=== PATIENT | male | born 1945 | race Caucasian/White ===

== ENCOUNTER 2017-09-12 12:46 | Emergency (ER) | payer MEDICARE ==
[2017-09-12] MEDS ORDERED: Cyclobenzaprine 10 MG TAB ONE (14:06)
[2017-09-12] MEDS ORDERED: Ketorolac Tromethamine 30 MG/ML VIAL ONE (14:06)
--- NOTE | 2017-09-12 14:48 | CT ---
CT SCAN LUMBAR SPINE: Date: 09/12/17 Multiple axial tomograms obtained through the lumbar spine with multiplanar reconstruction. HISTORY: Back pain. FINDINGS: Scoliosis of the upper lumbar spine with convexity to the right measured at 24 degrees. Moderate to s evere degenerative changes of the lumbar spine with anterior and lateral osteophytes at all levels. T here are bridging osteophytes present. The vertebral bodies maintain height in the sagittal plane. Po sterior alignment is also preserved. At L1-2, diffuse disc bulge is pronounced paracentrally and on the left. This flattens the thecal sac and is associated with facet and ligamentous hypertrophy resulting in moderate central canal stenosi s. At L2-3, diffuse disc bulge combined with facet and ligamentous hypertrophy results in moderate to se juanpbalo central canal stenosis. Left foraminal narrowing. At L3-4, there is diffuse disc bulge. Prominent facet and ligamentous hypertrophy. Moderate central c anal stenosis. Large disc osteophyte complex projects to the right. Bilateral foraminal stenosis. At L4-5, broad based disc bulge. Facet hypertrophy. Severe central canal stenosis. Disc osteophyte co mplex projects to the right and encroaches into the foramina. Bilateral foraminal stenosis, more gordon re on the right. At l5-S1, diffuse disc bulge and posterior spurring compresses the thecal sac. Facet and ligamentous hypertrophy. Moderate to severe central canal stenosis. Bilateral foraminal stenosis due to disc bulg e and hypertrophic change. Tiny gas pockets from desiccated disc extends into the left foramina. Review of soft tissues reveals a fluid-filled dilated structure in the upper abdomen which is incompl etely evaluated, presumably representing a distended stomach, although not confirmed. There are bilat eral renal cystic lesions and there is small left pleural effusion incidentally noted. IMPRESSION: Severe degenerative changes of the lumbar spine with scoliotic curvature. Central canal stenosis at m ultiple levels as described. POS: KELLIE
== END 2017-09-12 15:35 | disposition home or self-care (01) ==
LOC: ERS 12:46
DX: M54.5 Low back pain (principal); E78.00 Pure hypercholesterolemia, unspecified; I25.2 Old myocardial infarction; Z79.899 Other long term (current) drug therapy
CPT/HCPCS: 72131; 96372; J1885

== ENCOUNTER 2018-09-21 16:06 | Emergency (ER) | payer MEDICARE ==
--- NOTE | 2018-09-21 16:38 | RAD ---
EXAM: Single view of the chest HISTORY: Dizziness and tingling COMPARISON: 06/07/2013 FINDINGS: Single view of the chest shows an enlarged but stable cardiomediastinal silhouette. The pa tient is status post sternotomy. Pleural thickening is seen in the left thorax. There may be a small left pleural effusion. There is no evidence of consolidation or mass. The bones are unremarkabl e. IMPRESSION: Left pleural thickening and small left pleural effusion
[2018-09-21 16:48] LABS: #Basophils 0.1 thou/uL (0.0-0.2); #Eosinphils 0.1 thou/uL (0.0-0.7); #Lymphocytes 1.7 thou/uL (1.20-3.40); #Monocytes 0.7 thou/uL (0.11-0.59); #Neutrophils 4.5 thou/uL (1.40-6.50); %Basophils 0.8 % (0.0-1.0); %Eosinophils 1.4 % (0.0-10.0); %Monocytes 9.5 % (0.0-10.0); %Neutrophils 64.3 % (42.0-75.0); Hemoglobin 13.9 g/dL (14.0-18.0); Mean Corpuscular HGB CONC 32.2 g/dL (32.0-36.0); Mean Corpuscular Hemoglobin 28.9 pg (27.0-31.0); Mean Corpuscular Volume 89.8 fL (78.0-98.0); Mean Platelet Volume 8.2 fL (7.4-10.4); Platelet Count 205 thou/uL (130-400); RBC Distribution Width 12.9 % (11.5-14.5)
[2018-09-21 17:14] LABS: ALT (SGPT) 14 U/L (8-55); AST (SGOT) 19 U/L (5-34); Albumin 3.9 g/dL (3.4-4.8); Alkaline Phosphatase 80 U/L (40-150); Anion Gap 10 mmol/L (10-20); BUN (Urea Nitrogen) 24 mg/dL (8.4-25.7); Bilirubin, Total 0.4 mg/dL (0.2-1.2); CK (CPK) 124 U/L (30-200); Calc. Creatinine Clearance 0 mL/min (70-130); Calcium 9.5 mg/dL (7.8-10.44); Carbon Dioxide 27 mmol/L (23-31); Chloride 105 mmol/L (98-107); Estimated GFR-MDRD 67; Globulin 3.5 g/dL (2.4-3.5); Glucose 103 mg/dL (83-110); Lipase 31 U/L (8-78); Potassium 4.4 mmol/L (3.5-5.1); Protein, Total 7.4 g/dL (5.8-8.1); Sodium 138 mmol/L (136-145)
--- NOTE | 2018-09-21 17:17 | CT ---
Head CT without contrast 09/21/2018: HISTORY: Right upper extremity weakness TECHNIQUE: Axial CT imaging at 5 mm intervals from vertex through skull base without contrast FINDINGS: Imaged paranasal sinuses and mastoid air cells appear grossly unremarkable. There is athero sclerotic calcification of the cavernous carotid arteries and distal vertebral arteries. There is mild cerebral volume loss. Mild hypodensity noted in bilateral cerebellar hemispheres posteriorly, wi thin the hoang, and involving the periventricular white matter, likely on the basis of small vessel disease. IMPRESSION: No acute findings. If there is clinical concern for acute infarction, follow-up brain MRI is advised.
--- NOTE | 2018-09-21 18:34 | MRI ---
MRI of the lumbar spine: 09/21/2018 COMPARISON: None HISTORY: Right leg weakness and numbness for 3-4 days TECHNIQUE: Multiplanar multisequence MR imaging of the lumbar spine obtained without contrast FINDINGS: There is severe scoliotic curvature of the lumbar spine, limiting detailed assessment. There is complex abnormal T2 hyperintensity in the region of the partially imaged left lung base whic h may signify complex left pleural effusion and/or nonspecific left basilar pulmonary parenchymal opacity. The sagittal STIR imaging demonstrates no focal area of osseous marrow edema. No significant anterolisthesis or retrolisthesis is noted within the lumbar spine. Assuming 5 lumbar type vertebral bodies, the conus medullaris terminates at the T12-L1 level. T12-L1: Disc space narrowing and disc desiccation. Bilateral facet hypertrophy, left greater than rig ht. Moderate left neural foraminal stenosis. No significant central canal or right neural foraminal stenosis. L1-2: Disc space narrowing, disc desiccation, and disc bulge present. Bilateral facet hypertrophy, le ft greater than right. There is left lateral recess stenosis and moderate/severe left neural foraminal stenosis. No right neural foraminal stenosis. L2-3: There is disc space narrowing and disc desiccation. Prominent bilateral facet hypertrophy and h ypertrophy of the ligamentum flavum. Moderate central canal stenosis and moderate bilateral neural foraminal stenosis. L3-4: Disc space narrowing and disc desiccation with mild disc bulge. Prominent bilateral facet hyper trophy. Severe right neural foraminal stenosis. Mild/moderate central canal stenosis. No left neural foraminal stenosis. L4-5: Disc space narrowing and disc desiccation with mild disc bulge and moderate central canal steno sis. Prominent bilateral facet hypertrophy. Significant bilateral lateral recess stenosis, right greater than left. Severe right neural foraminal stenosis and mild/moderate left neural foraminal constantine nosis. L5-S1: Disc space narrowing, disc desiccation, and disc bulge with small superimposed central disc pr otrusion causing moderate central canal stenosis. Bilateral facet hypertrophy with moderate bilateral neural foraminal stenosis. Review of the retroperitoneal structures demonstrates multiple T2 hyperintense lesions emanating from bilateral kidney suggesting multiple cysts. In addition, there is a T2 isointense lesion emanating from the upper pole of the right kidney measuring 2.1 cm. This does not meet criteria for a simple cy st and should be further assessed via nonemergent CT examination of the abdomen. IMPRESSION: 1. Severe multilevel degenerative change with associated multifocal central canal and neural foramina l stenosis. 2. Nonspecific lesion emanating from upper pole of right kidney, which does not meet criteria for a c yst. Recommend nonemergent follow-up CT of the abdomen without and with contrast using a renal mass protocol. CODE T
== END 2018-09-21 19:30 | disposition home or self-care (01) ==
LOC: ERS 16:06
DX: M48.061 Spinal stenosis, lumbar region without neurogenic claudication (principal); R53.1 Weakness; I25.2 Old myocardial infarction; E78.5 Hyperlipidemia, unspecified; I10 Essential (primary) hypertension; Z87.891 Personal history of nicotine dependence; Z79.899 Other long term (current) drug therapy
CPT/HCPCS: 70450; 71045; 72148; 80053; 82550; 83690; 84484; 85025; 93005

== ENCOUNTER 2021-02-12 10:50 | Outpatient (CLI) | payer MEDICARE ==
[2021-02-12] MEDS ORDERED: Iopamidol 370 76% 100 ML VIAL ONE (11:11)
== END 2021-02-12 10:51 | disposition home or self-care (01) ==
LOC: CT 10:50
PROVIDERS: ATTEND Internal Medicine Cardiovascular Disease
DX: I77.810 Thoracic aortic ectasia (principal); J90 Pleural effusion, not elsewhere classified
CPT/HCPCS: 71275; 82565

== ENCOUNTER 2021-02-13 14:19 | Inpatient (IN) | payer MEDICARE ==
[2021-02-13 16:21] LABS: #Basophils 0.1 thou/uL (0.0-0.2); #Eosinphils 0.1 thou/uL (0.0-0.7); #Lymphocytes 1.6 thou/uL (1.20-3.40); #Monocytes 0.8 thou/uL (0.11-0.59); #Neutrophils 5.8 thou/uL (1.40-6.50); %Basophils 0.7 % (0.0-1.0); %Eosinophils 1.1 % (0.0-10.0); %Lymphocytes 19.4 % (21.0-51.0); %Monocytes 9.1 % (0.0-10.0); %Neutrophils 69.7 % (42.0-75.0); Hemoglobin 14.8 g/dL (14.0-18.0); Mean Corpuscular Hemoglobin 30.9 pg (27.0-31.0); Mean Corpuscular Volume 90.7 fL (78.0-98.0); Mean Platelet Volume 8.1 fL (7.4-10.4); Platelet Count 187 thou/uL (130-400); RBC Distribution Width 12.5 % (11.5-14.5); White Blood Cell (WBC) Count 8.3 thou/uL (4.8-10.8)
[2021-02-13 16:41] LABS: ALT (SGPT) 12 U/L (8-55); AST (SGOT) 18 U/L (5-34); Albumin 4.1 g/dL (3.4-4.8); Alkaline Phosphatase 75 U/L (40-110); Anion Gap 11 mmol/L (10-20); BUN (Urea Nitrogen) 27 mg/dL (8.4-25.7); Bilirubin, Total 0.7 mg/dL (0.2-1.2); Calc. Creatinine Clearance 0 mL/min (70-130); Calcium 9.2 mg/dL (7.8-10.44); Carbon Dioxide 27 mmol/L (23-31); Chloride 104 mmol/L (98-107); Globulin 3.2 g/dL (2.4-3.5); Glucose 92 mg/dL (83-110); Lipase 35 U/L (8-78); Potassium 4.7 mmol/L (3.5-5.1); Protein, Total 7.3 g/dL (5.8-8.1); Sodium 137 mmol/L (136-145)
[2021-02-13 17:39] LABS: Magnesium 2.1 mg/dL (1.6-2.6)
[2021-02-13] MEDS ORDERED: Cefepime 2 GM VIAL ONE (18:21)
[2021-02-13] MEDS ORDERED: Guaifenesin DM 100-10/5 ML UDCUP PO PRN (18:30)
[2021-02-13] MEDS ORDERED: Acetaminophen 325 MG TAB PO PRN (18:30)
[2021-02-13] MEDS ORDERED: Ondansetron PF 4 MG/2 ML Vial IVP PRN (18:30)
[2021-02-13] MEDS ORDERED: hydrALAZINE 20 MG/ML VIAL SLOW IVP PRN (18:38)
[2021-02-13] MEDS ORDERED: Melatonin 3 MG TAB PO PRN (18:38)
[2021-02-13] MEDS ORDERED: Vancomycin 1 GM/200 ML BAG ONE (19:11)
[2021-02-13] MEDS: Famotidine/PF 20 mg/2ml Vial SLOW IVP SCH (20:39)
[2021-02-13 21:55] VITALS: BMI 20.3
[2021-02-13] MEDS ORDERED: Vancomycin HCl 500 MG in Sodium Chloride 0.9% 100 ML IVPB SCH (22:15)
[2021-02-14] MEDS ORDERED: Cefepime 2 GM in Sodium Chloride 0.9% 100 ML IVPB SCH (06:00)
[2021-02-14 06:07] LABS: #Basophils 0.1 thou/uL (0.0-0.2); #Eosinphils 0.2 thou/uL (0.0-0.7); #Lymphocytes 1.6 thou/uL (1.20-3.40); #Monocytes 0.7 thou/uL (0.11-0.59); #Neutrophils 4.3 thou/uL (1.40-6.50); %Basophils 0.8 % (0.0-1.0); %Eosinophils 2.5 % (0.0-10.0); %Lymphocytes 23.9 % (21.0-51.0); %Monocytes 9.6 % (0.0-10.0); %Neutrophils 63.1 % (42.0-75.0); Hemoglobin 13.8 g/dL (14.0-18.0); Mean Corpuscular Volume 90.8 fL (78.0-98.0); Mean Platelet Volume 8.9 fL (7.4-10.4); Platelet Count 170 thou/uL (130-400); RBC Distribution Width 12.5 % (11.5-14.5); Red Blood Cell (RBC) Count 4.74 mill/uL (4.70-6.10); White Blood Cell (WBC) Count 6.8 thou/uL (4.8-10.8)
[2021-02-14 06:18] LABS: INR-International Normal Ratio 0.8; Prothrombin Time 11.1 sec (12.0-14.7)
[2021-02-14 06:31] LABS: Anion Gap 8 mmol/L (10-20); BUN (Urea Nitrogen) 26 mg/dL (8.4-25.7); Calc. Creatinine Clearance 49 mL/min (70-130); Carbon Dioxide 26 mmol/L (23-31); Chloride 109 mmol/L (98-107); Sodium 138 mmol/L (136-145)
[2021-02-14 06:32] LABS: Cardiac Risk 2.7 (Less than 4.5); Cholesterol 118 mg/dl (< 200 Desired); Glucose 94 mg/dL (83-110); HDL Cholesterol 44 mg/dL (>60 Neg Risk); LDL Cholesterol, Calculated 62 mg/dL; Triglycerides 60 mg/dL (Less than 150)
[2021-02-14 08:33] LABS: SARS-CoV-2 PCR by NAA Not Detected (NotDetected)
[2021-02-14] MEDS: Famotidine/PF 20 mg/2ml Vial SLOW IVP SCH ×2 (08:52→21:22)
[2021-02-14] MEDS ORDERED: FLU VACC QS2021-22(65YR UP)/PF 240 MCG/0.7 ML SYRINGE IM ONE (09:00)
[2021-02-14] MEDS: Amlodipine 10 MG TAB PO SCH (10:06)
[2021-02-14] MEDS: Rosuvastatin 20 MG TAB PO SCH (10:06)
[2021-02-14] MEDS ORDERED: Vancomycin 1 GM in Premix Bag 1 BAG IVPB SCH (18:00)
[2021-02-14] MEDS ORDERED: Enoxaparin Sodium 40 MG/0.4 ML SYRINGE SC SCH (21:00)
[2021-02-15 07:30] VITALS: BP 154/89; TEMP 97.6
[2021-02-15] MEDS: Amlodipine 10 MG TAB PO SCH (08:23)
[2021-02-15] MEDS: Rosuvastatin 20 MG TAB PO SCH (08:24)
[2021-02-15] MEDS: Famotidine/PF 20 mg/2ml Vial SLOW IVP SCH (08:24)
== END 2021-02-15 11:10 | disposition home or self-care (01) | DRG 187 ==
LOC: ERS 14:19 → 2NO 17:35
PROVIDERS: ADMIT Family Medicine; ATTEND Internal Medicine
DX: J90 Pleural effusion, not elsewhere classified (principal); N17.9 Acute kidney failure, unspecified; E78.5 Hyperlipidemia, unspecified; Z20.822 Contact with and (suspected) exposure to COVID-19; I10 Essential (primary) hypertension; Z95.1 Presence of aortocoronary bypass graft; Z79.82 Long term (current) use of aspirin; Z90.49 Acquired absence of other specified parts of digestive tract; Z87.891 Personal history of nicotine dependence
CPT/HCPCS: 36415; 71045; 71046; 71275; 80048; 80053; 80061; 82565; 83690; 83735; 83880; 84484; 85025; 85610; 86140; 87040; 93005; 93306; 96365; 96367; J0692; J3370; J3490; Q9967; S0028; U0003; U0005

== ENCOUNTER 2022-11-19 09:35 | Outpatient (CLI) | payer MEDICARE | END 2022-11-19 09:36 | disposition home or self-care (01) | LOC: BICCT 09:35 | PROVIDERS: ATTEND Nurse Practitioner Family | DX: J90 Pleural effusion, not elsewhere classified (principal); J98.11 Atelectasis; I70.0 Atherosclerosis of aorta; J98.4 Other disorders of lung; I25.10 Atherosclerotic heart disease of native coronary artery without angina pectoris; M43.9 Deforming dorsopathy, unspecified; M47.815 Spondylosis without myelopathy or radiculopathy, thoracolumbar region; N28.9 Disorder of kidney and ureter, unspecified; N20.0 Calculus of kidney; N28.1 Cyst of kidney, acquired; Z95.1 Presence of aortocoronary bypass graft | CPT/HCPCS: 71260 ==